=== PATIENT | female | born 1995 | race Asian ===

== ENCOUNTER 2022-12-06 23:04 | Emergency (ER) | payer OTHER ==
[~2022-12-06] VITALS: Ht 162.6 cm; Wt 72.7 kg
[2022-12-06 23:05] VITALS: BP 143/89
[2022-12-07] MEDS ORDERED: DOXYCYCLINE HYCLATE 100 MG TABLET PO ONE (01:15)
[2022-12-07] MEDS ORDERED: IBUPROFEN 600 MG TABLET PO ONE (01:15)
[2022-12-07] MEDS ORDERED: DOXY-354 PO (01:16)
[2022-12-07] MEDS ORDERED: IBUP-1492 PO (01:16)
== END 2022-12-07 02:00 | disposition home or self-care (01) ==
LOC: EMS 23:08
DX: L03.317 Cellulitis of buttock (principal)
CPT/HCPCS: 99283

== ENCOUNTER 2023-03-02 09:32 | Emergency (ER) | payer OTHER ==
[~2023-03-02] VITALS: Ht 162.6 cm; Wt 66.8 kg
[~2023-03-02 09:32] MED LIST: DOXY-354 PO; IBUP-1492 PO
[2023-03-02 09:44] VITALS: TEMP 98.1
[2023-03-02 11:15] VITALS: BP 114/63; PULSE 88; RESP 16
[2023-03-02] MEDS ORDERED: IBUPROFEN 600 MG TABLET PO ONE (11:30)
[2023-03-02] MEDS ORDERED: IBUP-1492 PO (11:32)
== END 2023-03-02 11:59 | disposition home or self-care (01) ==
LOC: EMS 09:33
DX: S83.422A Sprain of lateral collateral ligament of left knee, initial encounter (principal); M25.562 Pain in left knee; X50.1XXA Overexertion from prolonged static or awkward postures, initial encounter; Y93.61 Activity, american tackle football; Y92.89 Other specified places as the place of occurrence of the external cause; Y99.8 Other external cause status
CPT/HCPCS: 29505; 99283